=== PATIENT | female | born 1995 | race Hispanic/Latino ===

== ENCOUNTER 2025-06-01 18:43 | Emergency (ER) | payer OTHER ==
--- OUTSIDE RECORDS SUMMARY | 2025-06-01 18:48 | XMS REPORT | Continuity of Care Document ---
Author Name Unknown Address [address] [facility] [place] [address] [facility] Address [address] [facility] [place] [address] Care Team Providers Care Hide Spreader Name Role Phone Angelique Peres NP Primary Care Physician +- [phone] Debra Lyons PA-C Attending Clinician [phone] DEBRA LYONS Attending Clinician Unavailable Alexia Andrade Attending Clinician [phone] ALEXIA SUTHERLAND Attending Clinician Unavailable Unknown, Attending Attending Clinician Unavailab KAYLEE Pham Attending Clinician Unavailable Kaylee Carpenter Attending Clinician [phone] Unknown, Attending Attending Clinician UnavailJG Jay Attending Clinician Unavailable Jg Chaudhari MD Attending Clinician [phone] UNKNOWN, ATTENDING Attending Clinician Unavailab Jaquez Unassigned, [place] Attending Clinician U SUSANNE Carolina Attending Clinician UnavailSUSANNE Jordan Attending Clinician Unavaila BYRON Mata Attending Clinician Unavailable BYRON APONTE Attending Clinician Unavailable ZEKE BERG Attending Clinician Unavailable Faviola Garza Attending Clinician [phone] [facility] Attending Clinician Unav ailkarri Cade MD, Briana M Attending Clinician BRIANA MOHAMUD Attending Clinician BYRON Clifford Admitting Clinician Unavailable Payers Payer Name Policy Type Policy Number Effective Date Expirati on Date Source ALL SAVERADHA [id number] 2021 00:00:00 Problems Condition Name Condition Details Condition Category Status Onset Date Resolution Date Last Treatment Date Treating Clinician Comments Source Viral infection affecting in second trimester Viral infection affecting in second trimester Disease Active 03-18 00:00: 00 [facility] Nausea and vomiting Nausea and vomiting Disease Active 03-18 00:00: 00 [facility] Obesity (BMI 30-39.9) Obesity (BMI 30-39.9) Disease Active 03-18 00:00: 00 [facility] 23 weeks gestation of 23 weeks gestation of Disease Active 03-18 00:00: 00 [facility] Viral infection Viral infection Disease Active 03-18 00:00: 00 [facility] Surveillan ce of previously prescribed contracept kyra method Surveillan ce of previously prescribed contracept kyra method Disease Resolve d 11-08 00:00: 00 2019-03-18 00:00:00 2022-03-25 00:34:50 [facility] Immunizati ons up to date Immunizati ons up to date Disease Resolve d 11-08 00:00: 00 2019-03-18 00:00:00 2019-03-18 18:37:57 [facility] Allergies, Adverse Reactions, Alerts Allergy Name Allergy Type Status Severity Reaction(s) Onset Date Inactive Date Treating Clinician Comments Source No Known Allergie s DA Active U 2018-09 00:00: 00 [facility] No Known Allergie s DA Active U 12-17 00:00: 00 [facility] NO KNOWN ALLERGIE S Drug Class Active [facility] Social History Social Habit Start Date Stop Date Quantity Comments Source [facility] SDOH Alcohol Frequency [facility] History SDOH Alcohol Std Drinks [facility] History SDOH Alcohol Binge [facility] History of Social function 2024-11-08 00:00:00 2024-11-08 00:00:00 [facility] Alcoholic beverage intake 2024-11-08 00:00:00 2024-11-08 00:00:00 Ex-drinker (finding) [facility] Tobacco use and exposure 2024-11-08 00:00:00 2024-11-08 00:00:00 Smokeless tobacco non-user [facility] Alcohol intake 2023-09-15 00:00:00 2023-09-15 00:00:00 Ex-drinker (finding) [facility] Exposure to SARS-CoV-2 (event) 2022-05-10 00:00:00 2022-05-20 19:43:00 Not sure [facility] Alcohol Comment 2013-10-15 00:00:00 2013-10-15 00:00:00 on occasion [facility] Sex assigned at 1995 00:00:00 1995 00:00:00 [facility] Smoking Status Start Date Stop Date Source Never smoked tobacco [facility] Medications Ordered Medication Name Filled Medication Name Start Date Stop Date Current Medication? Ordering Clinician Indication Dosage Frequency Signature (SIG) Comments Components Source bromphenira mine-pseudo ephedrine-D M (BROMFED DM) 2-30-10 mg/5 mL syrup 11-17 00:00: 00 Yes [id number] 5mL Take 5 mL by mouth 3 (three) times daily as needed for Cold symptoms or Cough. [facility] albuterol 2.5 mg /3 mL (0.083 %) nebulizer solution 11-11 00:00: 00 Yes [id number] 2.5mg Inhale 3 mL every 4 (four) hours as needed for Chest tightness or Bronchospa sm. [facility] albuterol 90 mcg/actuati on inhaler 11-11 00:00: 00 Yes [id number] 2{puff} Inhale 2 Puffs every 6 (six) hours as needed for Shortness of Breath or Bronchospa sm. [facility] methylPREDN ISolone (MEDROL, ALEXIS,) 4 mg tablets 3- 00:00: 00 Yes [id number] Take by mouth SEE-INSTRU CTIONS. follow package directions [facility] amoxicillin -pot clavulanate 875-125 mg per tablet 3-02 00:00: 00 11-19 04:59 :00 No [id number] 1{tbl} Take 1 tablet by mouth in the morning and 1 tablet in the evening. Do all this for 10 days. [facility] amoxicillin 875 mg tablet 2-14 00:00: 00 11-03 05:59 :00 No [id number] 875mg Take 1 tablet by mouth in the morning and 1 tablet in the evening. Do all this for 10 days. [facility] benzonatate 100 mg capsule 1- 00:00: 00 Yes [id number] 200mg Take 2 capsules by mouth every 8 (eight) hours as needed for Cough. [facility] promethazin e-dextromet horphan 6.25-15 mg/5 mL syrup 1-07 00:00: 00 Yes [id number] 5mL Take 5 mL by mouth 4 (four) times daily as needed for Cough. [facility] NaCl 0.9% (NS) bolus infusion 1,000 mL 05-21 01:45: 00 05-21 03:28 :00 No 1000mL at 999 mL/hr, 1,000 mL, IV Infusion, ONCE, 1 dose, On 05/20/22 at 2045, STAT [facility] ketorolac tromethamin e (TORADOL) injection 15 mg 05-21 01:00: 00 05-21 01:00 :00 No 15mg 15 mg, Slow IV Push, ONCE, 1 dose, On 05/20/22 at 2000, JANET [facility] vit calc,iron,f olic ( VITAMIN ORAL) 5-15 15:07: 08 01-21 00:00 :00 No 1{tbl} Take 1 tablet by mouth. [facility] Levothyroxi ne 88 mcg capsule 03-19 00:08: 36 Yes 1{capsu le} Take 1 capsule by mouth daily. [facility] Levothyroxi ne 88 mcg capsule 03-18 19:08: 36 Yes 1{capsu le} Take 1 capsule by mouth daily. [facility] ondansetron (ZOFRAN ODT) 4 mg disintegrat ing tablet 03-18 00:00: 00 Yes [id number] 4mg Take 1 tablet by mouth every 6 (six) hours as needed for Nausea and Vomiting (N/V). [facility] Immunizations Ordered Immunization Name Filled Immunization Name Date Status Comments Source TD, NOS 2023-10-23 09:00:00 Completed [facility] TD, NOS 2023-09-15 10:00:00 Completed [facility] TD, NOS 2023-09-15 00:00:00 Completed [facility] Td 2010 00:00:00 Completed [facility] TD, NOS 2010 00:00:00 Completed [facility] Td 2010 00:00:00 Completed [facility] Td 2010 00:00:00 Completed [facility] Td 2010 00:00:00 Completed [facility] Vital Signs Vital Name Observation Time Observation Value Comments S ource Systolic blood pressure 2024-11-08 18:26:00 126 mm[Hg] [facility] Diastolic blood pressure 2024-11-08 18:26:00 91 mm[Hg] [facility] Heart rate 2024-11-08 18:25:00 118 /min [facility] Body temperature 2024-11-08 18:25:00 36.44 Brittani [facility] Respiratory rate 2024-11-08 18:25:00 16 /min [facility] Body height 2024-11-08 18:25:00 152.4 cm [facility] Body weight 2024-11-08 18:25:00 83.008 kg [facility] BMI 2024-11-08 18:25:00 35.74 kg/m2 [facility] Oxygen saturation in Arterial blood by Pulse oximetry 2024-11-08 18:25:00 97 /min [facility] Systolic blood pressure 2023-10-23 15:13:00 122 mm[Hg] [facility] Diastolic blood pressure 2023-10-23 15:13:00 82 mm[Hg] [facility] Heart rate 2023-10-23 15:13:00 117 /min [facility] Body temperature 2023-10-23 15:13:00 37.39 Brittani [facility] Respiratory rate 2023-10-23 15:13:00 17 /min [facility] Body weight 2023-10-23 15:13:00 79.788 kg [facility] BMI 2023-10-23 15:13:00 33.24 kg/m2 [facility] Oxygen saturation in Arterial blood by Pulse oximetry 2023-10-23 15:13:00 97 /min [facility] Systolic blood pressure 2023-09-15 16:12:00 112 mm[Hg] [facility] Diastolic blood pressure 2023-09-15 16:12:00 77 mm[Hg] [facility] Heart rate 2023-09-15 16:12:00 106 /min [facility] Body temperature 2023-09-15 16:12:00 36.83 Brittani [facility] Respiratory rate 2023-09-15 16:12:00 16 /min [facility] Body weight 2023-09-15 16:12:00 81.33 kg [facility] BMI 2023-09-15 16:12:00 33.88 kg/m2 [facility] Oxygen saturation in Arterial blood by Pulse oximetry 2023-09-15 16:12:00 99 /min [facility] Systolic blood pressure 2022-05-21 03:00:00 125 mm[Hg] [facility] Diastolic blood pressure 2022-05-21 03:00:00 79 mm[Hg] [facility] Heart rate 2022-05-21 03:00:00 87 /min [facility] Respiratory rate 2022-05-21 03:00:00 14 /min [facility] Oxygen saturation in Arterial blood by Pulse oximetry 2022-05-21 03:00:00 100 /min [facility] Body temperature 2022-05-21 00:46:00 37.06 Brittani [facility] Body height 2022-05-21 00:46:00 154.9 cm [facility] Body weight 2022-05-21 00:46:00 70.308 kg [facility] BMI 2022-05-21 00:46:00 29.29 kg/m2 [facility] Systolic blood pressure 2020-01-22 14:55:00 100 mm[Hg] [facility] Diastolic blood pressure 2020-01-22 14:55:00 56 mm[Hg] [facility] Heart rate 2020-01-22 14:55:00 70 /min [facility] Body temperature 2020-01-22 14:55:00 36.67 Brittani [facility] Respiratory rate 2020-01-22 14:55:00 14 /min [facility] Body height 2020-01-22 14:55:00 154.9 cm [facility] Body weight 2020-01-22 14:55:00 79.379 kg [facility] BMI 2020-01-22 14:55:00 33.07 kg/m2 [facility] Oxygen saturation in Arterial blood by Pulse oximetry 2020-01-22 14:55:00 98 /min [facility] Procedures Procedure Date / Time Performed Performing Clinician Source XR CHEST 2 VW 2024-11-08 18:56:43 Alexia Sutherland [facility] POCT MOLECULAR FLU 2024-11-08 18:33:00 Unknown, Attend [facility] POCT MOLECULAR STREP 2024-11-08 18:30:00 [facility] 2023-10-23 15:11:00 [facility] PO[facility] SARS-COV-2 ANTIGEN (BINAX NOW) 2023-09-15 16:19:00 Jg Chaudhari [facility] POCT MOLECULAR FLU 2023-09-15 16:12:00 Unknown, Attend ing [facility] POCT MOLECULAR STREP 2023-09-15 16:09:00 Unknown, Attmarcus velez [facility] ASSIGNMENT OF BENEFITS 2023-09-15 15:59:18 Docto r Unassigned, [place] [facility] SEDIMENTATION RATE 2022-05-21 01:39:00 Fay [facility] D-DIMER 2022-05-21 01:39:00 Fay Byron [facility] XR CHEST 1 VW 2022-05-21 01:16:22 Fay [facility] URINE DRUG (IMMUNOASSAY) - COMPREHENSIVE DRUG SCREEN W/O REFLEX 2022-05-21 01:03:00 Fay Byron [facility] COVID-19 (ID NOW RAPID TESTING) 2022-05-21 01:02:00 Fay Byron [facility] LIPASE 2022-05-21 01:02:00 Fay [facility] TROPONIN I 2022-05-21 01:02:00 Fay [facility] COMP. METABOLIC PANEL ([id number]) 2022-05-21 01:02:00 Fay [facility] CBC WITH DIFF 2022-05-21 01:02:00 Byron [facility] URINALYSIS 2022-05-21 01:02:00 Fay [facility] N-TERMINAL PRO-BNP 2022-05-21 01:02:00 Fay Byron [facility] POCT TEST 2022-05-21 00:50:00 Fay [facility] NOTICE OF PRIVACY PRACTICES 2022-05-21 00:31:53 Doctor Unassigned, [place] [facility] CONSENT/REFUSAL FOR DIAGNOSIS AND TREATMENT 2022-05-21 00:31:32 Doctor Unassigned, [place] [facility] POCT GRP A STREP (MOLECULAR) 2020-01-22 15:13:00 Christie Escalante [facility] Encounters Start Date/Time End Date/Time Encounter Type Admission Type Attending [facility] Care Facility Care Department Encounter ID Source 2024-12-03 00:00:00 2024-12-03 14:19:26 Refnikhil Lyons Debra [facility] JESS[facility] 1.2.840.114 350.1.13.10 4.2.7.2.686 [id number] [facility] 2024-11-17 18:40:00 2024-11-17 19:47:11 Outpatient R DEBRA LYONS [facility] [id number] [facility] 2024-11-10 00:00:00 2024-11-11 15:41:07 Telephone [place] Alexia [facility] JESS?[facility] [id number] 350.1.13.10 4.2.7.2.686 [id number] [facility] 2024-11-08 12:50:05 2024-11-08 23:59:00 Hospital Encounter Alexia Sutherland [facility] J[facility] [id number] 350.1.13.10 4.2.7.2.686 [id number] [facility] 2024-11-08 12:40:00 2024-11-08 13:06:24 Outpatient R ALEXIA SUTHERLAND [facility] [id number] [facility] 2024-11-08 12:40:00 2024-11-08 13:06:24 Urgent Care SutherlandAlexia Ernesto, Attending [facility] 1.2.840.114 350.1.13.10 4.2.7.2.686 [id number] [facility] 2023-10-23 09:00:00 2023-10-23 09:48:54 Outpatient R KAYLEE CHRISTINE [facility] [id number] [facility] 2023-10-23 09:00:00 2023-10-23 09:20:00 Urgent Care Kalyee Christine Unknown, Attending [facility] 1..840.114 350.1.13.10 4.2.7.2.686 [id number] [facility] 2023-09-15 10:00:00 2023-09-15 10:46:01 Outpatient R JG CHAUDHARI [facility] [id number] [facility] 2023-09-15 10:00:00 2023-09-15 10:46:01 Urgent Care Jg Chaudhari Unknown, Attending [facility] 1..840.114 350.1.13.10 4.2.7.2.686 [id number] [facility] 2023-09-15 00:00:00 2023-09-15 00:00:00 Orders Only Doctor Unassigned, [place] [facility] 1.840.114 350.1.13.10 4.2.7.2.686 [id number] [facility] 2022-07-09 11:30:00 2022-07-09 11:30:00 Outpatient R SUSANNE BALLARD CHERYAL [facility] [id number] [facility] 2022-05-20 19:52:00 2022-05-20 22:30:00 Emergency X BYRON APONTE [facility] ERT [id number] [facility] 2022-05-20 19:52:00 2022-05-20 22:30:00 Emergency Byron Aponte [facility] 1.840.114 350.1.13.10 4.2.7.2.686 [id number] [facility] 2022-05-20 00:00:2022-05-20 00:00:00 Orders Only Doctor Unassigned, [place] [facility] 1.2.840.114 350.1.13.10 4.2.7.2.686 [id number] [facility] 2020-10-07 08:40:00 2020-10-07 08:40:00 Outpatient R MORENA ZEKE [facility] [id number] [facility] 2020-01-24 00:00:00 2020-01-24 00:00:00 Telephone Faviola Garza [facility] 1.2.840.114 350.1.13.10 4.2.7.2.686 [id number] [facility] 2020-01-22 09:43:39 2020-01-22 10:13:30 Urgent Care Pob1, Acute Care Clinic Briana Mohamud [facility] 1.2.840.114 350.1.13.10 4.2.7.2.686 [id number] [facility] 2020-01-22 10:00:00 2020-01-22 10:00:00 Outpatient BRIANA KIMBALL [facility] [id number] [facility] Results Test Description Test Time Test Comments Results Resul t Comments Source XR Chest 2 vw 2 19:56:05 XR CHEST 2 11/08/2024 12:54 PM HISTORY: cough x 1 week, fever . COMPARISON: Chest radiograph dated 05/20/2022. FINDINGS: Cardiomediastinal silhouette is unremarkable. Right mid/lower lung zone hazy opacity, suspicious for infectious process.Follow up radiograph in 6-8 weeks is advised. No sizable pleural effusion or pneumothorax. No acute osseous abnormality. [facility] MOLECULAR [id number] 18:38:01* Test Item Value Reference Range Interpretation Comme nts POCT Molecular Strep (test c ode = 44363-3) Negative Negative Lab Interpretation (test cod e = 82977-3) Normal [facility] MOLECULAR [id number] 15:18:37* Test Item Value Reference Range Interpretation Comme nts POCT Molecular Strep (test c ode = 60382-4) Positive Negative A Lab Interpretation (test cod e = 27876-5) Abnormal [facility] SARS-COV-2 ANTIGEN (BINAX NOW)2023-09-15 16:19:00* Test Item Value Reference Range Interpretation Comme nts POCT SARS-COV-2 ANTIGEN (test code = 47755-7) Not Detected Not Detected On board controls acceptable with C Line (test code = 3574) Yes RAYMOND (test code = RAYMOND) accurate developme nt and interpretation of all internal controls Lab Interpretation (test code = 36560-5) Normal [facility] MOLECULAR [id number] 16:17:45* Test Item Value Reference Range Interpretation Comme nts POCT Molecular Strep (test c ode = 19765-5) Negative Negative Lab Interpretation (test cod e = 30007-9) Normal [facility] Molecular [id number] 16:15:59* Test Item Value Reference Range Interpretation Comme nts POCT Molecular FluB (test co de = 07433-0) Positive Negative A Lab Interpretation (test cod e = 35444-5) [id number] 01:37:26* Test Item Value Reference Range Interpretation Comments TROPONIN I (test code = 5566222369) 0.004 ng/mL See_Comment [Automated message] The system which generated this result transmitted reference range: <=0.034. The reference range was not used to interpret this result as normal/abnormal. RAYMOND (test code = RAYMOND) Reference (Normal) Range (defined by the 99th percentile reference limit): <= 0.034 ng/mL Note: Cardiac troponin begins to rise 3-4 hours after the onset of ischemia. Repeat in 4-6 hours if the sample was drawn within 3-4 hours of the onset of the symptom and found normal. Diagnosis of myocardial injury is made with acute changes in cTn concentrations with at least one serial sample above the 99th percentile upper reference limit (URL), taken together with the patient's clinical presentation. Biotin has been reported to cause a negative bias, interpret results relative to patient's use of biotin. Lab Interpretation (test code = 18514-6) Normal [facility] [id number] 01:34:24* Test Item Value Reference Range Interpretation Comme nts NT-proBNP (test code = 3921432844) 62 pg/mL See_Comment [Automated message] The system which generated this result transmitted reference range: <=125. The reference range was not used to interpret this result as normal/abnormal. RAYMOND (test code = RAYMOND) Biotin has been reported to cause a negative bias, interpret results relative to patient's use of biotin. Lab Interpretation (test code = 41039-5) [facility]OL[facility] PAN[facility] (72173)2022-05-21 01:26:06* Test Item Value Reference Range Interpretation Comme nts NA (test code = 3899760078) 138 mmol/L 135-145 K (test code = 6323910887) 3.9 mmol/L 3.5-5 CL (test code = 9683382133) 102 mmol/L 98-108 CO2 TOTAL (test code = 1657973321) 28 mmol/L 23-31 AGAP (test code = 2566137957) 2-16 BUN (test code = 7172548095) 14 mg/dL 7-23 GLUCOSE (test code = 2263690299) 83 mg/dL 70-110 CREATININE (test code = 7674846482) 0.80 mg/dL 0.5-1.04 TOTAL BILI (test code = 0660796113) 0.7 mg/dL 0.1-1.1 CALCIUM (test code = 8515562915) 9.2 mg/dL 8.6-10.6 T PROTEIN (test code = 1245681173) 7.3 g/dL 6.3-8.2 ALBUMIN (test code = 7980491484) 4.7 g/dL 3.5-5 ALK PHOS (test code = 9131212440) 112 U/L 34-122 ALTv (test code = 1742-6) 134 U/L 5-35 H AST(SGOT) (test code = 9502294555) 69 U/L 13-40 H eGFR (test code = 5802153214) mL/min/1.73m2 RAYMOND (test code = RAYMOND) Association of Glomerular Filtration Rate (GFR) and Staging of Kidney Disease* + --+ --+ ------+| GFR (mL/min/1.73 m2) ?| With Kidney Damage ?| ?Without Kidney Damage+ --------+ --------+ +| ?>90 ?| ?Stage one ?| ? Normal ?+ ---+ ---+ -------+| ?60-89 ?| ?Stage two ?| ? Decreased GFR ? + --+ --+ ------+| ?30-59 ?| ?Stage three ?| ? Stage three ? + --+ --+ ------+| ?15-29 ?| ?Stage four ? | ? Stage four ?+ ---+ ---+ -------+| ?<15 (or dialysis) ? ?| ?Stage five ? | ? Stage five ?+ ---+ ---+ -------+ *Each stage assumes the associated GFR level has been in effect for at least three months. ?Stages 1 to 5, with or without kidney disease, indicate chronic kidney disease. Notes: Determination of stages one and two (with eGFR >59mL/min/1.73 m2) requires estimation of kidney damage for at least three months as defined by structural or functional abnormalities of the kidney, manifested by either:Pathological abnormalities or Markers of kidney damage (including abnormalities in the composition of the blood or urine or abnormalities in imaging tests). Lab Interpretation (test code = 52493-8) [facility]25:20* Test Item Value Reference Range Interpretation Comme nts LIPASE (test code = 5156213463) 90 U/L 0-220 Lab Interpretation (test cod e = 31361-6) Normal [facility] WITH [id number] 01:17:03* Test Item Value Reference Range Interpretation Comme nts WBC (test code = 6690-2) See_Comment [Automated [employer]] The system which generated this result transmitted reference range: 4.30 - 11.10 10*3/?L. The reference range was not used to interpret this result as normal/abnormal. RBC (test code = 789-8) See_Comment [Automated [employer]] The system which generated this result transmitted reference range: 3.93 - 5.25 10*6/?L. The reference range was not used to interpret this result as normal/abnormal. HGB (test code = 718-7) 14.6 g/dL 11.6-15 HCT (test code = 4544-3) 42.0 % 35.7-45.2 MCV (test code = 787-2) 86.4 fL 80.6-95.5 MCH (test code = 785-6) 30.0 pg 25.9-32.8 MCHC (test code = 786-4) 34.8 g/dL 31.6-35.1 RDW-SD (test code = 40043-5) 41.2 fL 39-49.9 RDW-CV (test code = 788-0) 13.2 % 12-15.5 PLT (test code = 777-3) See_Comment [Automated messa ge] The system which generated this result transmitted reference range: 166 - 358 10*3/?L. The reference range was not used to interpret this result as normal/abnormal. MPV (test code = 39655-4) 10.3 fL 9.5-12.9 NRBC/100 WBC (test code = 7006905872) See_Comment [Automated [employer] ssage] The system which generated this result transmitted reference range: 0.0 - 10.0 /100 WBCs. The reference range was not used to interpret this result as normal/abnormal. NRBC x10^3 (test code = 7888514733) See_Comment [Automated messa ge] The system which generated this result transmitted reference range: 10*3/?L. The reference range was not used to interpret this result as normal/abnormal. GRAN MAT (NEUT) % (test code = 770-8) 63.1 % IMM GRAN % (test code = 2638968112) 0.40 % LYMPH % (test code = 736-9) 24.4 % MONO % (test code = 5905-5) 9.4 % EOS % (test code = 713-8) 2.0 % BASO % (test code = 706-2) 0.7 % GRAN MAT x10^3(ANC) (test code = 6826335213) 6.78 10*3/uL 1.88-7.09 IMM GRAN x10^3 (test code = 6490885413) 0.04 10*3/uL 0-0.06 LYMPH x10^3 (test code = 731-0) 2.63 10*3/uL 1.32-3.29 MONO x10^3 (test code = 742-7) 1.01 10*3/uL 0.33-0.92 H EOS x10^3 (test code = 711-2) 0.22 10*3/uL 0.03-0.39 BASO x10^3 (test code = 704-7) 0.08 10*3/uL 0.01-0.07 H Lab Interpretation (test code = 34648-2) Abnormal [facility] [id number] 00:50:00* Test Item Value Reference Range Interpretation Comme nts POCT PREG (test code = 1605) Negative On board controls acceptable with C Line (test code = 3574) Present POCT PREG LOT # (test code = 3575) HCG [id number] POCT PREG TEST DATE ( test code = 3576) 08/08/2023 Lab Interpretation (test cod e = 87197-2) Normal [facility] GRP A STREP (MOLECULAR)2020-01-22 15:13:00* Test Item Value Reference Range Interpretation Comme nts POCT GP A STREP (test code = 88807-9) neg Negative - Negative RAYMOND (test code = RAYMOND) accurate developme nt and interpretation of all internal controls Lab Interpretation (test code = 84064-2) [facility] [id number] 11:43:00* Test Item Value Reference Range Interpretation Comme nts AG HEPATITIS B SURFACE (test code = HBSAG) NONREACTIVE NONREACTIVE IS CONSENT FORM SIGNED FOR HIV TESTING? YAB HEPATITIS C [id number] 11:43:00* Test Item Value Reference Range Interpretation Comme nts AB HEPATITIS C (test code = HCVAB) NONREACTIVE NONREACTIVE SIGNAL TO CUTOFF (test code = CUTOFF) 0.11 <0.80 N IS CONSENT FORM SIGNED FOR HIV TESTING? YAB [id number] 11:43:00* Test Item Value Reference Range Interpretation Comme nts AB TREPONEMA (test code = TREPAB) NONREACTIVE NONREACTIVE IS CONSENT FORM SIGNED FOR HIV TESTING? YAB HIV 1 [id number] 11:43:00* Test Item Value Reference Range Interpretation Comme nts AB HIV 1 2 (test code = KOX95ZZ) NONREACTIVE NONREACTIVE Done by [employer] HIV Ag/Ab Combo Screen IS CONSENT FORM SIGNED FOR HIV TESTING? YAG HEPATITIS B [id number] 11:17:00* Test Item Value Reference Range Interpretation Comme nts AG HEPATITIS B SURFACE (test code = HBSAG) NONREACTIVE NONREACTIVE IS CONSENT FORM SIGNED FOR HIV TESTING? YAB HEPATITIS C [id number] 11:17:00* Test Item Value Reference Range Interpretation Comme nts AB HEPATITIS C (test code = HCVAB) NONREACTIVE SIGNAL TO CUTOFF (test code = CUTOFF) <0.80 IS CONSENT FORM SIGNED FOR HIV TESTING? FABIANB [id number] 11:17:00* Test Item Value Reference Range Interpretation Comme nts AB TREPONEMA (test code = TREPAB) NONREACTIVE NONREACTIVE IS CONSENT FORM SIGNED FOR HIV TESTING? FABIANB HIV 1 11:17:00* Test Item Value Reference Range Interpretation Comme nts AB HIV 1 2 (test code = NWX90EX) NONREACTIVE IS CONSENT FORM SIGNED FOR HIV TESTING? YCBC W/AUTO [id number] 10:24:00* Test Item Value Reference Range Interpretation Comme nts WHITE BLOOD CELL (test code = WBC) 10.6 K/mm3 6.6-12.1 N RED BLOOD CELL (test code = RBC) 4.00 M/mm3 3.45-5.01 N HEMOGLOBIN (test code = HGB) 10.8 g/dL 10.7-13.9 N HEMATOCRIT (test code = HCT) 33.6 % 32.1-42.1 N MEAN CELL VOLUME (test code = MCV) 84 fL 84.1-94.8 L MEAN CELL HGB (test code = MCH) 27.0 pg 27-35 N MEAN CELL HGB CONCETRATION ( test code = MCHC) 32.1 gm/dL 32.2-34.1 L RED CELL DISTRIBUTION WIDTH (test code = RDW) 16.0 % 12.4-16.5 N PLATELET COUNT (test code = PLT) 273 K/mm3 133-385 N IMMATURE PLATELET FRACTION ( test code = IPF) 0.0 % 0.0-10.8 N MEAN PLATELET VOLUME (test c ode = MPV) 11.5 fl 9.1-12.7 N NEUTROPHIL % (test code = NT%) 78.4 % 56.5-79.4 N LYMPHOCYTE % (test code = LY%) 14.2 % 14.3-34.3 L MONOCYTE % (test code = MO%) 6.2 % 5.1-10.4 N EOSINOPHIL % (test code = EO%) 0.4 % 0.1-3.0 N BASOPHIL % (test code = BA%) 0.4 % 0.1-1.0 N NEUTROPHIL # (test code = NT#) 8.3 K/mm3 LYMPHOCYTE # (test code = LY#) 1.5 K/mm3 MONOCYTE # (test code = MO#) 0.7 K/mm3 EOSINOPHIL # (test code = EO#) 0.04 K/mm3 BASOPHIL # (test code = BA#) 0.0 K/mm3 RBC MORPHOLOGY REQUIRED (janice t code = RBCM) NORMAL NORMAL PLATELET MORPHOLOGY REQUIRED (test code = PLTMR) NORMAL NORMAL PIH [id number] 13:26:00* Test Item Value Reference Range Interpretation Comme nts CREATININE (test code = CREAT) 0.5 mg/dL 0.5-1.0 N SGOT/AST (test code = AST) 32 units/L 15-37 N SGPT/ALT (test code = ALT) 16 units/L 12-78 N LACTIC DEHYDROGENASE(LDH) (t est code = LDH) 314 units/L 81-234 H : *URINALYSIS [id number] 13:19:00* Test Item Value Reference Range Interpretation Comme nts UA COLOR (test code = COLU) YELLOW YELLOW UA APPEARANCE (test code = APPU) CLEAR CLEAR UA GLUCOSE DIPSTICK (test co de = DGLUU) NEGATIVE NEG UA BILIRUBIN DIPSTICK (test code = BILU) NEGATIVE NEG UA KETONE DIPSTICK (test cod e = KETU) TRACE NEG A UA SPECIFIC GRAVITY (test co de = SGU) 1.013 1.001-1.035 N UA BLOOD DIPSTICK (test code = KEN) NEG NEG UA PH DIPSTICK (test code = SAMANTHA) 6.0 5-9 UA PROTEIN DIPSTICK (test co de = PROU) NEGATIVE NEG UA UROBILINIOGEN DIPSTICK (test code = URO) NEGATIVE mg/dL NEG UA NITRITE DIPSTICK (test co de = LUCIA) NEG NEG UA LEUKOCYTE ESTERASE DIPSTI CK (test code = LEUU) NEG NEG UA WBC (test code = WBCU) 0-2 #/hpf NONE SEEN UA RBC (test code = RBCU) 0-2 #/hpf NONE SEEN UA EPITHELIAL CELLS (test co de = EPIU) RARE #/HPF RARE-FEW UA MUCUS (test code = MUCU) RARE NONE SEEN URINE SAMPLE: CLEAN CATCHComment SAMPLE IS IN LABCBC W/AUTO [id number] 13:18:00* Test Item Value Reference Range Interpretation Comme nts WHITE BLOOD CELL (test code = WBC) 8.7 K/mm3 6.6-12.1 N RED BLOOD CELL (test code = RBC) 3.72 M/mm3 3.45-5.01 N HEMOGLOBIN (test code = HGB) 10.1 g/dL 10.7-13.9 L HEMATOCRIT (test code = HCT) 31.7 % 32.1-42.1 L MEAN CELL VOLUME (test code = MCV) 85 fL 84.1-94.8 N MEAN CELL HGB (test code = MCH) 27.2 pg 27-35 N MEAN CELL HGB CONCETRATION ( test code = MCHC) 31.9 gm/dL 32.2-34.1 L RED CELL DISTRIBUTION WIDTH (test code = RDW) 15.6 % 12.4-16.5 N PLATELET COUNT (test code = PLT) 246 K/mm3 133-385 N IMMATURE PLATELET FRACTION ( test code = IPF) 0.0 % 0.0-10.8 N MEAN PLATELET VOLUME (test c ode = MPV) 12.0 fl 9.1-12.7 N NEUTROPHIL % (test code = NT%) 74.1 % 56.5-79.4 N LYMPHOCYTE % (test code = LY%) 16.9 % 14.3-34.3 N MONOCYTE % (test code = MO%) 6.9 % 5.1-10.4 N EOSINOPHIL % (test code = EO%) 1.1 % 0.1-3.0 N BASOPHIL % (test code = BA%) 0.5 % 0.1-1.0 N NEUTROPHIL # (test code = NT#) 6.5 K/mm3 LYMPHOCYTE # (test code = LY#) 1.5 K/mm3 MONOCYTE # (test code = MO#) 0.6 K/mm3 EOSINOPHIL # (test code = EO#) 0.10 K/mm3 BASOPHIL # (test code = BA#) 0.0 K/mm3 RBC MORPHOLOGY REQUIRED (janice t code = RBCM) NORMAL NORMAL PLATELET MORPHOLOGY REQUIRED (test code = PLTMR) NORMAL NORMAL UR PROTEIN/CREATININE [id number] 12:47:00* Test Item Value Reference Range Interpretation Comme nts UR PROTEIN RANDOM (test code = PROTU) 27.3 mg/dL UR CREATININE RANDOM (test code = CREATU) 74.7 mg/dL PROTEIN/CREATININE RATIO (te st code = P/CRATIO) 360.0 mg/gcrea <200 H PLACENTA THIRD [id number] 12:51:00 RUN DATE: 04/15/18 [facility] PAGE 1 RUN TIME: 1334 Specimen Inquiry RUN USER: INTERFACE ------- -----PATIENT: KIRK FALLON LOC: SbVANDANA U #: [id number] AGE/SX: 22/F ROOM: 2045 RE04/11/18REG DR: Alexia Randall : 94 BED: A DIS: STATUS: ADM IN TLOC: SPEC #: [id number] RECD: 04/13/18 STATUS: OSIRIS DOMINGO #: [id number] CAMI: 04/13/18- SUBM DR: Alexia Randall MD ENTERED: 04/14/18 SP TYPE: PLACIII OTHR DR: Madhavi Winkler MD ORDERED: LEVEL V SURGICA CODES: [id number] - PLACENTA, NOS COPIES TO: Alexia Randall MD [address] [facility] [place] [address] [place] [id number] [email or web address] Madhavi Winkler MD [address] [facility] [address] [place] [address] [email or web address] PROCEDURES: LEVEL V SURGICA (Incomplete) TISSUES: PLACENTA, NOS- PLACENTA CLINICAL HISTORY 22 year old, 38.2 weeks, [id number], vaginal delivery, gestational hypertension, chorioamnionitis (pola) FINAL DIAGNOSIS Placenta, delivery - large placenta for stated gestational age - villous immaturity, mild Tissue code 1 CPT code(s): 96244 bgw/kr 04/15/18 @ 1244 GROSS DESCRIPTION The specimen was received in a container, labeled with the patient's name, unit number and designated "placenta". The following attributes are observed: Cord insertion: 8 cm from margin CONTINUED ON NEXT PAGE RUN DATE: 04/15/18 [facility] PAGE 2 RUN TIME: 1334 Specimen Inquiry RUN USER: INTERFACE SPEC #: [id number] PATIENT: KIRK FALLON #[id number] (Continued) GROSS DESCRIPTION (Continued) Cord length: 54 cm Number of vessels: 3 Cord color: Blue-bobby Other cord findings: None Fetalsurface findings: Steel blue, wrinkled, glistening Vasculature: Displays unremarkable blood vasculature Membranes rupture site: 6 cm to margin Membrane color: Bobby Other membrane findings: Thickened and opaque The trimmed placental weight: 694 gm Disk measurement: 23 x 19 x 5.0 cm in greatest dimension Accessory lobes: None Maternal surface: Lobulated and intact Parenchyma: Red, beefy, and spongy Parenchyma lesions: None Cassettes: A through D hz/wpd 04/14/18 @ 6998 MICROSCOPIC DESCRIPTION Theplacenta is large for stated gestational age at 694 gm, which exceeds the 90th percentile expected weight of 589 gm. Villous development is mildly immature for stated gestational age. davy/pola 04/15/18 @ 1245 Signed Tirso BatesLydia 04/15/18 1251 END OF REPORT Notes Date/Time Note Provider Source 2024-11-11 15:41:23 Albuterol sent to pharmacy. Pt informed. [facility] 2024-11-10 14:47:30 Routing to Provider., please advise AR Harris MA [facility] 2024-11-10 10:16:30 Pt said was seen at the urgent care for pneumonia and requesting albuterol inhaler and albuterol solution that goes in the nebulizer. 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 Myranda Mandujano [facility] 2019-07-04 10:21:00 [facility]) OB Disch REPORT#:[id number] REPORT STATUS: Signed DATE:07/04/19 TIME: 1021 PATIENT: KIRK FALLON UNIT #: [id number] ROOM/BED: 4624-A : 94 AGE: 23 SEX: F ATTEND: Alexia Randall MD ADM AUTHOR: Lilia Freedman * ALL edits or amendments must be made on the electronic/computer document * Subjective Subjective Admission EGA (wks/days): 39 weeks EGA at delivery (wks/days): 39 weeks Status/day: post (PPD #1) Patient reports: Patient reports: Yes: normal lochia, pain management effective, tolerating po well, voiding well, voiding without pain, tolerating ambulation, flatus. No: complaints, excessive bleeding, abdominal pain. Objective General VS: Vital Signs Date Temp Pulse Resp B/P B/P Mean Pulse Ox FiO2 07/03 36.1-36.9 66-106 18 124-154/69-96 94.0-113.0 Last Documented: Result Date Time B/P 131/76 07/03 1945 Temp 36.1 07/03 1945 Pulse 91 07/03 1945 Resp 18 07/03 1945 B/P Mean 97.0 07/03 191 Patient Weight Weight (lb): Weight (oz): Weight (kg): Physical Exam Abdomen: no abnormal tenderness, no guarding, no rebound tenderness Uterus: involution appropriate, non-tender Fundus: below the umbilicus, non-tender Lochia: normal Results Findings/Data: Laboratory Tests: 07/03 1009 Hematology WBC (6.6 - 12.1 K/mm3) 10.6 RBC (3.45 - 5.01 M/mm3) 4.00 Hgb (10.7 - 13.9 g/dL) 10.8 Hct (32.1 - 42.1 %) 33.6 MCV (84.1 - 94.8 fL) 84 L MCH (27 - 35 pg) 27.0 MCHC (32.2 - 34.1 gm/dL) 32.1 L RDW (12.4 - 16.5 %) 16.0 Plt Count (133 - 385 K/mm3) 273 MPV (9.1 - 12.7 fl) 11.5 Neut % (Auto) (56.5 - 79.4 %) 78.4 Lymph % (Auto) (14.3 - 34.3 %) 14.2 L [place] % (Auto) (5.1 - 10.4 %) 6.2 Eos % (Auto) (0.1 - 3.0 %) 0.4 Baso % (Auto) (0.1 - 1.0 %) 0.4 Neut # (Auto) (K/mm3) 8.3 Lymph # (Auto) (K/mm3) 1.5 [place] # (Auto) (K/mm3) 0.7 Eos # (Auto) (K/mm3) 0.04 Baso # (Auto) (K/mm3) 0.0 Immature Plt Fraction (0.0 - 10.8 %) 0.0 Serology Treponema pallidum Ab (NONREACTIVE) NONREACTIVE Hep Bs Antigen (NONREACTIVE) NONREACTIVE Hepatitis C Antibody (NONREACTIVE) NONREACTIVE Hep C Ab Signal/Cutoff (<0.80) 0.11 HIV 1 2 Antibody (NONREACTIVE) NONREACTIVE Discharge Summary Discharge Summary Free Text A P: 23 y/o at 39w0d s/p TSVD Assessment: PPD # 1, VSS -ID: Afebrile. No signs or symptoms of infection -Lab: Hgb 10.8, serology neg x 3 -CV/Pulm: hemodynamically stable -GI/: tolerating regular diet, voiding spontaneously -Mother/Baby: patient is breast feeding her -Pain control: well controlled with PO pain medications -Rubella immune /Rh + -PMH: hypothyroid on Synthroid 88 mcg, managed by endo -PSH: none -Dispo: Cont routine PP care, anticipate discharge home on POD #1. Discharge orders given, restrictions reviewed. Date of admission: Date of admission: 07/03/19 Admission diagnosis: labor-spontaneous Hospital course: spontaneous labor Baby A: Vaginal delivery: spontaneous status: live born Gender: male 1 minute: 8 5 minutes: 9 Plan: routine care, discharge today Instructions: routine instr sheet given, instr and warnings rev'd, specific instr as noted Diet: regular Activity and restrictions: up ad mary ann, may shower, pelvic rest, no intercourse for 6 wks Contraception discussed: will discuss at PP visit Discharge meds: Continue taking these medications: FERROUS SULFATE (FEOSOL) 325 MG TAB 325 MILLIGRAM ORAL DAILY. Qty = 30 LEVOTHYROXINE (LEVOTHROID) 88 MCG TAB 88 MICROGRAM ORAL DAILY. ESOMEPRAZOLE MAG DR (NexIUM) 20 MG CAP.DR 20 MILLIGRAM ORAL DAILY AT 0600. as needed for HEARTBURN PNV/FE FUM/FA ( MULTIVITAMIN) 1 TAB TAB 1 TABLET ORAL DAILY. Discharge condition: stable Discharge to: home Follow up in: 6 weeks Discharge diagnosis: full-term uncomp delivery at 1025 RPT #:[id number] END OF REPORT [facility] 2019-07-04 10:21:00 [facility] ([facility]) OB Disch REPORT#:[id number] REPORT STATUS: Signed DATE:07/04/19 TIME: 1021 PATIENT: KIRK FALLON UNIT #: [id number] ROOM/BED: [address] : 94 AGE: 23 SEX: F ATTEND: Alexia Randall MD ADM AUTHOR: Lilia Freedman * ALL edits or amendments must be made on the electronic/computer document * Lilia Freedman 07/04/19 1021: Subjective Subjective Admission EGA (wks/days): 39 weeks EGA at delivery (wks/days): 39 weeks Status/day: post (PPD #1) Patient reports: Patient reports: Yes: normal lochia, pain management effective, tolerating po well, voiding well, voiding without pain, tolerating ambulation, flatus. No: complaints, excessive bleeding, abdominal pain. Objective General VS: Vital Signs Date Temp Pulse Resp B/P B/P Mean Pulse Ox FiO2 07/03 36.1-36.9 66-106 18 124-154/69-96 94.0-113.0 Last Documented: Result Date Time B/P 131/76 07/03 1945 Temp 36.1 07/03 1945 Pulse 91 07/03 1945 Resp 18 07/03 1945 B/P Mean 97.0 07/03 1913 Patient Weight Weight (lb): Weight (oz): Weight (kg): Physical Exam Abdomen: no abnormal tenderness, no guarding, no rebound tenderness Uterus: involution appropriate, non-tender Fundus: below the umbilicus, non-tender Lochia: normal Results Findings/Data: Laboratory Tests: 07/03 1009 Hematology WBC (6.6 - 12.1 K/mm3) 10.6 RBC (3.45 - 5.01 M/mm3) 4.00 Hgb (10.7 - 13.9 g/dL) 10.8 Hct (32.1 - 42.1 %) 33.6 MCV (84.1 - 94.8 fL) 84 L MCH (27 - 35 pg) 27.0 MCHC (32.2 - 34.1 gm/dL) 32.1 L RDW (12.4 - 16.5 %) 16.0 Plt Count (133 - 385 K/mm3) 273 MPV (9.1 - 12.7 fl) 11.5 Neut % (Auto) (56.5 - 79.4 %) 78.4 Lymph % (Auto) (14.3 - 34.3 %) 14.2 L [place] % (Auto) (5.1 - 10.4 %) 6.2 Eos % (Auto) (0.1 - 3.0 %) 0.4 Baso % (Auto) (0.1 - 1.0 %) 0.4 Neut # (Auto) (K/mm3) 8.3 Lymph # (Auto) (K/mm3) 1.5 [place] # (Auto) (K/mm3) 0.7 Eos # (Auto) (K/mm3) 0.04 Baso # (Auto) (K/mm3) 0.0 Immature Plt Fraction (0.0 - 10.8 %) 0.0 Serology Treponema pallidum Ab (NONREACTIVE) NONREACTIVE Hep Bs Antigen (NONREACTIVE) NONREACTIVE Hepatitis C Antibody (NONREACTIVE) NONREACTIVE Hep C Ab Signal/Cutoff (<0.80) 0.11 HIV 1 2 Antibody (NONREACTIVE) NONREACTIVE Discharge Summary Discharge Summary Free Text A P: 23 y/o at 39w0d s/p TSVD Assessment: PPD # 1, VSS -ID: Afebrile. No signs or symptoms of infection -Lab: Hgb 10.8, serology neg x 3 -CV/Pulm: hemodynamically stable -GI/: tolerating regular diet, voiding spontaneously -Mother/Baby: patient is breast feeding her infant -Pain control: well controlled with PO pain medications -Rubella immune /Rh + -PMH: hypothyroid on Synthroid 88 mcg, managed by endo -PSH: none -Dispo: Cont routine PP care, anticipate discharge home on POD #1. Discharge orders given, restrictions reviewed. Date of admission: Date of admission: 07/03/19 Admission diagnosis: labor-spontaneous Hospital course: spontaneous labor Baby A: Vaginal delivery: spontaneous status: live born Gender: male 1 minute: 8 5 minutes: 9 Plan: routine care, discharge today Instructions: routine instr sheet given, instr and warnings rev'd, specific instr as noted Diet: regular Activity and restrictions: up ad mary ann, may shower, pelvic rest, no intercourse for 6 wks Contraception discussed: will discuss at PP visit Discharge meds: Continue taking these medications: FERROUS SULFATE (FEOSOL) 325 MG TAB 325 MILLIGRAM ORAL DAILY. Qty = 30 LEVOTHYROXINE (LEVOTHROID) 88 MCG TAB 88 MICROGRAM ORAL DAILY. ESOMEPRAZOLE MAG DR (NexIUM) 20 MG CAP.DR 20 MILLIGRAM ORAL DAILY AT 0600. as needed for HEARTBURN PNV/FE FUM/FA ( MULTIVITAMIN) 1 TAB TAB 1 TABLET ORAL DAILY. Discharge condition: stable Discharge to: home Follow up in: 6 weeks Discharge diagnosis: full-term uncomp delivery Morena Greenwood 07/04/19 1044: Discharge Summary Discharge Summary Date of admission: Date of admission: 07/03/19 Attestations Attestation needed: supervising physician Physician Attestation Agree w/findings plan: Agree with the findings and plan as documented by Lilia Freedman Pt is PPD#1, dc home Reviewed findings plan: Reviewed the findings and plan as documented by Lilia Freedman at 1025 RPT #:[id number] END OF REPORT [facility] 2019-07-04 10:21:00 [facility] OB Disch REPORT#:[id number] REPORT STATUS: Signed DATE:07/04/19 TIME: 1021 PATIENT: KIRK FALLON UNIT #: [id number] ROOM/BED: 4624-A : 94 AGE: 23 SEX: F ATTEND: Alexia Randall MD ADM AUTHOR: Lilia Freedman * ALL edits or amendments must be made on the electronic/computer document * Lilia Freedman 07/04/19 1021: Subjective Subjective Admission EGA (wks/days): 39 weeks EGA at delivery (wks/days): 39 weeks Status/day: post (PPD #1) Patient reports: Patient reports: Yes: normal lochia, pain management effective, tolerating po well, voiding well, voiding without pain, tolerating ambulation, flatus. No: complaints, excessive bleeding, abdominal pain. Objective General VS: Vital Signs Date Temp Pulse Resp B/P B/P Mean Pulse Ox FiO2 07/03 36.1-36.9 66-106 18 124-154/69-96 94.0-113.0 Last Documented: Result Date Time B/P 131/76 07/03 1945 Temp 36.1 07/03 1945 Pulse 91 07/03 1945 Resp 18 07/03 1945 B/P Mean 97.0 07/03 191 Patient Weight Weight (lb): Weight (oz): Weight (kg): Physical Exam Abdomen: no abnormal tenderness, no guarding, no rebound tenderness Uterus: involution appropriate, non-tender Fundus: below the umbilicus, non-tender Lochia: normal Results Findings/Data: Laboratory Tests: 07/03 1009 Hematology WBC (6.6 - 12.1 K/mm3) 10.6 RBC (3.45 - 5.01 M/mm3) 4.00 Hgb (10.7 - 13.9 g/dL) 10.8 Hct (32.1 - 42.1 %) 33.6 MCV (84.1 - 94.8 fL) 84 L MCH (27 - 35 pg) 27.0 MCHC (32.2 - 34.1 gm/dL) 32.1 L RDW (12.4 - 16.5 %) 16.0 Plt Count (133 - 385 K/mm3) 273 MPV (9.1 - 12.7 fl) 11.5 Neut % (Auto) (56.5 - 79.4 %) 78.4 Lymph % (Auto) (14.3 - 34.3 %) 14.2 L [place] % (Auto) (5.1 - 10.4 %) 6.2 Eos % (Auto) (0.1 - 3.0 %) 0.4 Baso % (Auto) (0.1 - 1.0 %) 0.4 Neut # (Auto) (K/mm3) 8.3 Lymph # (Auto) (K/mm3) 1.5 [place] # (Auto) (K/mm3) 0.7 Eos # (Auto) (K/mm3) 0.04 Baso # (Auto) (K/mm3) 0.0 Immature Plt Fraction (0.0 - 10.8 %) 0.0 Serology Treponema pallidum Ab (NONREACTIVE) NONREACTIVE Hep Bs Antigen (NONREACTIVE) NONREACTIVE Hepatitis C Antibody (NONREACTIVE) NONREACTIVE Hep C Ab Signal/Cutoff (<0.80) 0.11 HIV 1 2 Antibody (NONREACTIVE) NONREACTIVE Discharge Summary Discharge Summary Free Text A P: 23 y/o at 39w0d s/p TSVD Assessment: PPD # 1, VSS -ID: Afebrile. No signs or symptoms of infection -Lab: Hgb 10.8, serology neg x 3 -CV/Pulm: hemodynamically stable -GI/: tolerating regular diet, voiding spontaneously -Mother/Baby: patient is breast feeding her -Pain control: well controlled with PO pain medications -Rubella immune /Rh + -PMH: hypothyroid on Synthroid 88 mcg, managed by endo -PSH: none -Dispo: Cont routine PP care, anticipate discharge home on POD #1. Discharge orders given, restrictions reviewed. Date of admission: Date of admission: 07/03/19 Admission diagnosis: labor-spontaneous Hospital course: spontaneous labor Baby A: Vaginal delivery: spontaneous status: live born Gender: male 1 minute: 8 5 minutes: 9 Plan: routine care, discharge today Instructions: routine instr sheet given, instr and warnings rev'd, specific instr as noted Diet: regular Activity and restrictions: up ad mary ann, may shower, pelvic rest, no intercourse for 6 wks Contraception discussed: will discuss at PP visit Discharge meds: Continue taking these medications: FERROUS SULFATE (FEOSOL) 325 MG TAB 325 MILLIGRAM ORAL DAILY. Qty = 30 LEVOTHYROXINE (LEVOTHROID) 88 MCG TAB 88 MICROGRAM ORAL DAILY. ESOMEPRAZOLE MAG DR (NexIUM) 20 MG CAP.DR 20 MILLIGRAM ORAL DAILY AT 0600. as needed for HEARTBURN PNV/FE FUM/FA ( MULTIVITAMIN) 1 TAB TAB 1 TABLET ORAL DAILY. Discharge condition: stable Discharge to: home Follow up in: 6 weeks Discharge diagnosis: full-term uncomp delivery Morena Greenwood 07/04/19 1044: Discharge Summary Discharge Summary Date of admission: Date of admission: 07/03/19 Attestations Attestation needed: supervising physician Physician Attestation Agree w/findings plan: Agree with the findings and plan as documented by Lilia Freedman Pt is PPD#1, dc home Reviewed findings plan: Reviewed the findings and plan as documented by Lilia Freemdan at 1025 at 1045 RPT #:[id number] END OF REPORT [facility] 2019-07-04 10:21:00 [facility] OB Disch REPORT#:[id number] REPORT STATUS: Signed DATE:07/04/19 TIME: 1021 PATIENT: KIRK FALLON UNIT #: [id number] ROOM/BED: [address] : 94 AGE: 23 SEX: F ATTEND: Alexia Randall MD ADM AUTHOR: Lilia Freedman * ALL edits or amendments must be made on the electronic/computer document * Lilia Freedman 07/04/19 1021: Subjective Subjective Admission EGA (wks/days): 39 weeks EGA at delivery (wks/days): 39 weeks Status/day: post (PPD #1) Patient reports: Patient reports: Yes: normal lochia, pain management effective, tolerating po well, voiding well, voiding without pain, tolerating ambulation, flatus. No: complaints, excessive bleeding, abdominal pain. Objective General VS: Vital Signs Date Temp Pulse Resp B/P B/P Mean Pulse Ox FiO2 07/03 36.1-36.9 66-106 18 124-154/69-96 94.0-113.0 Last Documented: Result Date Time B/P 131/76 07/03 1945 Temp 36.1 07/03 1945 Pulse 91 07/03 1945 Resp 18 07/03 1945 B/P Mean 97.0 07/03 1913 Patient Weight Weight (lb): Weight (oz): Weight (kg): Physical Exam Abdomen: no abnormal tenderness, no guarding, no rebound tenderness Uterus: involution appropriate, non-tender Fundus: below the umbilicus, non-tender Lochia: normal Results Findings/Data: Laboratory Tests: 07/03 1009 Hematology WBC (6.6 - 12.1 K/mm3) 10.6 RBC (3.45 - 5.01 M/mm3) 4.00 Hgb (10.7 - 13.9 g/dL) 10.8 Hct (32.1 - 42.1 %) 33.6 MCV (84.1 - 94.8 fL) 84 L MCH (27 - 35 pg) 27.0 MCHC (32.2 - 34.1 gm/dL) 32.1 L RDW (12.4 - 16.5 %) 16.0 Plt Count (133 - 385 K/mm3) 273 MPV (9.1 - 12.7 fl) 11.5 Neut % (Auto) (56.5 - 79.4 %) 78.4 Lymph % (Auto) (14.3 - 34.3 %) 14.2 L [place] % (Auto) (5.1 - 10.4 %) 6.2 Eos % (Auto) (0.1 - 3.0 %) 0.4 Baso % (Auto) (0.1 - 1.0 %) 0.4 Neut # (Auto) (K/mm3) 8.3 Lymph # (Auto) (K/mm3) 1.5 [place] # (Auto) (K/mm3) 0.7 Eos # (Auto) (K/mm3) 0.04 Baso # (Auto) (K/mm3) 0.0 Immature Plt Fraction (0.0 - 10.8 %) 0.0 Serology Treponema pallidum Ab (NONREACTIVE) NONREACTIVE Hep Bs Antigen (NONREACTIVE) NONREACTIVE Hepatitis C Antibody (NONREACTIVE) NONREACTIVE Hep C Ab Signal/Cutoff (<0.80) 0.11 HIV 1 2 Antibody (NONREACTIVE) NONREACTIVE Discharge Summary Discharge Summary Free Text A P: 23 y/o at 39w0d s/p TSVD Assessment: PPD # 1, VSS -ID: Afebrile. No signs or symptoms of infection -Lab: Hgb 10.8, serology neg x 3 -CV/Pulm: hemodynamically stable -GI/: tolerating regular diet, voiding spontaneously -Mother/Baby: patient is breast feeding her infant -Pain control: well controlled with PO pain medications -Rubella immune /Rh + -PMH: hypothyroid on Synthroid 88 mcg, managed by endo -PSH: none -Dispo: Cont routine PP care, anticipate discharge home on POD #1. Discharge orders given, restrictions reviewed. Date of admission: Date of admission: 07/03/19 Admission diagnosis: labor-spontaneous Hospital course: spontaneous labor Baby A: Vaginal delivery: spontaneous status: live born Gender: male 1 minute: 8 5 minutes: 9 Plan: routine care, discharge today Instructions: routine instr sheet given, instr and warnings rev'd, specific instr as noted Diet: regular Activity and restrictions: up ad mary ann, may shower, pelvic rest, no intercourse for 6 wks Contraception discussed: will discuss at PP visit Discharge meds: Continue taking these medications: FERROUS SULFATE (FEOSOL) 325 MG TAB 325 MILLIGRAM ORAL DAILY. Qty = 30 LEVOTHYROXINE (LEVOTHROID) 88 MCG TAB 88 MICROGRAM ORAL DAILY. ESOMEPRAZOLE MAG DR (NexIUM) 20 MG CAP.DR 20 MILLIGRAM ORAL DAILY AT 0600. as needed for HEARTBURN PNV/FE FUM/FA ( MULTIVITAMIN) 1 TAB TAB 1 TABLET ORAL DAILY. Discharge condition: stable Discharge to: home Follow up in: 6 weeks Discharge diagnosis: full-term uncomp delivery Morena Greenwood 07/04/19 1044: Discharge Summary Discharge Summary Date of admission: Date of admission: 07/03/19 Attestations Attestation needed: supervising physician Physician Attestation Agree w/findings plan: Agree with the findings and plan as documented by Lilia Freedman Pt is PPD#1, dc home Reviewed findings plan: Reviewed the findings and plan as documented by Lilia Freedman at 1025 RPT #:[id number] END OF REPORT [facility] 2019-07-04 10:21:00 [facility] ([facility]) OB Disch REPORT#:[id number] REPORT STATUS: Signed DATE:07/04/19 TIME: 102 PATIENT: KIRK FALLON UNIT #: [id number] ROOM/BED: 4624-A : 94 AGE: 23 SEX: F ATTEND: Alexia Randall MD ADM AUTHOR: Lilia Freedman * ALL edits or amendments must be made on the electronic/computer document * Lilia Freedman 07/04/19 1021: Subjective Subjective Admission EGA (wks/days): 39 weeks EGA at delivery (wks/days): 39 weeks Status/day: post (PPD #1) Patient reports: Patient reports: Yes: normal lochia, pain management effective, tolerating po well, voiding well, voiding without pain, tolerating ambulation, flatus. No: complaints, excessive bleeding, abdominal pain. Objective General VS: Vital Signs Date Temp Pulse Resp B/P B/P Mean Pulse Ox FiO2 07/03 36.1-36.9 66-106 18 124-154/69-96 94.0-113.0 Last Documented: Result Date Time B/P 131/76 07/03 1945 Temp 36.1 07/03 1945 Pulse 91 07/03 1945 Resp 18 07/03 1945 B/P Mean 97.0 07/03 1913 Patient Weight Weight (lb): Weight (oz): Weight (kg): Physical Exam Abdomen: no abnormal tenderness, no guarding, no rebound tenderness Uterus: involution appropriate, non-tender Fundus: below the umbilicus, non-tender Lochia: normal Results Findings/Data: Laboratory Tests: 07/03 1009 Hematology WBC (6.6 - 12.1 K/mm3) 10.6 RBC (3.45 - 5.01 M/mm3) 4.00 Hgb (10.7 - 13.9 g/dL) 10.8 Hct (32.1 - 42.1 %) 33.6 MCV (84.1 - 94.8 fL) 84 L MCH (27 - 35 pg) 27.0 MCHC (32.2 - 34.1 gm/dL) 32.1 L RDW (12.4 - 16.5 %) 16.0 Plt Count (133 - 385 K/mm3) 273 MPV (9.1 - 12.7 fl) 11.5 Neut % (Auto) (56.5 - 79.4 %) 78.4 Lymph % (Auto) (14.3 - 34.3 %) 14.2 L [place] % (Auto) (5.1 - 10.4 %) 6.2 Eos % (Auto) (0.1 - 3.0 %) 0.4 Baso % (Auto) (0.1 - 1.0 %) 0.4 Neut # (Auto) (K/mm3) 8.3 Lymph # (Auto) (K/mm3) 1.5 [place] # (Auto) (K/mm3) 0.7 Eos # (Auto) (K/mm3) 0.04 Baso # (Auto) (K/mm3) 0.0 Immature Plt Fraction (0.0 - 10.8 %) 0.0 Serology Treponema pallidum Ab (NONREACTIVE) NONREACTIVE Hep Bs Antigen (NONREACTIVE) NONREACTIVE Hepatitis C Antibody (NONREACTIVE) NONREACTIVE Hep C Ab Signal/Cutoff (<0.80) 0.11 HIV 1 2 Antibody (NONREACTIVE) NONREACTIVE Discharge Summary Discharge Summary Free Text A P: 23 y/o at 39w0d s/p TSVD Assessment: PPD # 1, VSS -ID: Afebrile. No signs or symptoms of infection -Lab: Hgb 10.8, serology neg x 3 -CV/Pulm: hemodynamically stable -GI/: tolerating regular diet, voiding spontaneously -Mother/Baby: patient is breast feeding her infant -Pain control: well controlled with PO pain medications -Rubella immune /Rh + -PMH: hypothyroid on Synthroid 88 mcg, managed by endo -PSH: none -Dispo: Cont routine PP care, anticipate discharge home on POD #1. Discharge orders given, restrictions reviewed. Date of admission: Date of admission: 07/03/19 Admission diagnosis: labor-spontaneous Hospital course: spontaneous labor Baby A: Vaginal delivery: spontaneous status: live born Gender: male 1 minute: 8 5 minutes: 9 Plan: routine care, discharge today Instructions: routine instr sheet given, instr and warnings rev'd, specific instr as noted Diet: regular Activity and restrictions: up ad mary ann, may shower, pelvic rest, no intercourse for 6 wks Contraception discussed: will discuss at PP visit Discharge meds: Continue taking these medications: FERROUS SULFATE (FEOSOL) 325 MG TAB 325 MILLIGRAM ORAL DAILY. Qty = 30 LEVOTHYROXINE (LEVOTHROID) 88 MCG TAB 88 MICROGRAM ORAL DAILY. ESOMEPRAZOLE MAG DR (NexIUM) 20 MG CAP.DR 20 MILLIGRAM ORAL DAILY AT 0600. as needed for HEARTBURN PNV/FE FUM/FA ( MULTIVITAMIN) 1 TAB TAB 1 TABLET ORAL DAILY. Discharge condition: stable Discharge to: home Follow up in: 6 weeks Discharge diagnosis: full-term uncomp delivery Morena Greenwood 07/04/19 1044: Discharge Summary Discharge Summary Date of admission: Date of admission: 07/03/19 Attestations Attestation needed: supervising physician Physician Attestation Agree w/findings plan: Agree with the findings and plan as documented by Lilia Freedman Pt is PPD#1, dc home Reviewed findings plan: Reviewed the findings and plan as documented by Lilia Freedman at 1025 at 1045 RPT #:[id number] END OF REPORT [facility] 2019-07-03 16:53:00 [facility] ([facility]) OB Delivery Note REPORT#:[id number] REPORT STATUS: Signed DATE:07/03/19 TIME: 1652 PATIENT: KIRK FALLON UNIT #: [id number] ROOM/BED: [address] : 94 AGE: 23 SEX: F ATTEND: Alexia Randall MD ADM AUTHOR: Morena Greenwood MD * ALL edits or amendments must be made on the electronic/computer document * OB Delivery Nursing Documentation Review Nursing data: The data set between the solid lines has been imported from nursing documentation. Any exceptions have been noted below under Provider comments. _ ROM date: ROM time: Membranes rupture method: Amniotic fluid color: Amniotic fluid amount: EGA (weeks/days): EGA at admit (weeks): EGA at delivery (weeks): Steroids prior to arrival: Antibiotic prophylaxis given: Wheeler evaluation at delivery: Delivery date infant A: Delivery time A: Birthweight (gm) A: Weight (lb) infant A: Weight (oz) A: Gender infant A: 1 minute A: 5 minutes A: 10 minutes infant A: Cord pH obtained A: Vacuum time infant A: Vacuum # pulls A: Vacuum # popoffs infant A: __ Provider comments on imported nursing data: [] Pre-delivery GBS status: GBS status: negative evaluation at delivery: NRP certified personnel Admission EGA (wks/days): 39 weeks EGA at delivery (wks/days): 39 weeks General VS: Last Documented: Result Date Time B/P Mean 98.0 07/03 1359 B/P 129/80 07/03 1359 Pulse 78 07/03 135 Temp 98.3 07/03 1330 Resp 18 07/03 0941 Membranes: AROM ROM date: 07/03/19 Amniotic fluid: clear Labor onset: Date: 07/03/19 Baby A Information Baby A information Delivery date: 07/03/19 status: live born Wt of baby: not yet available Gender: male 1 minute: 8 5 minutes: 9 Presentation: vertex Vaginal Delivery Vaginal delivery Labor: augmented Medications/Devices used: oxytocin Vaginal delivery: spontaneous Amniotic fluid: clear Anesthesia type: epidural anesthesia Placenta: spontaneous Post delivery meds used: oxytocin Count: correct Mother's condition: mother stable 's condition: stable in room Lacerations: Perineal laceration(s): perineal skin abrasion Additional comments: As the head crowned and delivered, the perineum was protected with blue towel. The anterior shoulder delivered with gentle downward traction and posterior shoulder with gentle upward traction. A nuchal cord was noted. The infant was bulb suctioned, the cord clamped and cut, then handed to the waiting mother. Placenta delivered spontaneously and intact. Hemostasis achieved with fundal massage and IV pitocin. A perineal skin abrasion was noted and repaired for cosmesis with 2-0 vicryl on SH. Sponge, lap, and needle counts correct x 2, lap scan negative. Good maternal-infant bonding noted Blood Loss/Details Blood loss at delivery: <1000 ml (300 cc) at 1657 RPT #:[id number] END OF REPORT [facility] 2019-07-03 10:03:00 [facility] ([facility]) OB Admission / H P REPORT#:[id number] REPORT STATUS: Signed DATE:07/03/19 TIME: 1003 PATIENT: KIRK FALLON UNIT #: [id number] ROOM/BED: [facility] : 94 AGE: 23 SEX: F ATTEND: lAexia Randall MD ADM AUTHOR: Morena Greenwood MD * ALL edits or amendments must be made on the electronic/computer document * OB Admission H P Hx Nursing Documentation Review Nursing data: The data set between the solid lines has been imported from nursing documentation. Any exceptions have been noted below under Provider comments. Current data Steroids prior to arrival: ROM date: ROM time: EGA (weeks/days): EGA at admit (weeks): EDC date: Prior history : Para: Term: : Abortions spontaneous: Abortions induced: Living children: Ectopic: Stillbirths: Live births: deaths: Number of previous C/S: Reported maternal labs/data Blood type: Rh type: Rubella: Hepatitis B: HIV exposure test: VDRL: Group B beta strep: Rho(D) immune globulin this preg: Monitor mode - UA: Feeding preference: Provider comments on imported nursing data: [] Chief complaint: uterine contractions HPI: 23 y/o at 39w0d who presents for painful contractions history: : 3 Term: 1 : 0 Abortus: 1 Living children: 1 Complications (prev preg): none Current : EDC: 07/10/19 Admission EGA (wks/days): 39 weeks EGA based on: ultrasound, 1st trimester Past medical history: thyroid Past surgical history: denies PSH Social history: no alcohol use, no tobacco use, no drug use Medications: Home Medications: LEVOTHYROXINE (LEVOTHROID) 88 MCG PO DAILY ESOMEPRAZOLE MAG DR (NexIUM) 20 MG PO DAILY 0600 PRN HEARTBURN PNV/FE FUM/FA ( MULTIVITAMIN) 1 TAB PO DAILY FERROUS SULFATE (FEOSOL) 325 MG PO DAILY Allergies Coded Allergies: No Known Allergies (06/25/19) Review of Systems All systems rev neg: except as marked Objective General VS: Last Documented: Result Date Time B/P Mean 114.0 07/03 0941 B/P 146/92 07/03 0941 Pulse 82 07/03 0941 Vital Signs Date Temp Pulse Resp B/P B/P Mean Pulse Ox FiO2 07/03 82 146/92 114.0 Patient Weight Weight (lb): Weight (oz): Weight (kg): Physical Exam Abdomen: gravid, soft Uterine activity: Monitor: toco Frequency (description): regular Frequency (minutes): 2 Intensity: strong Pelvic exam: Pelvis clinically adequate: yes Cervical/ exam: Dilatation (cm): 6 Effacement (%): 70 Est wt (gms): 4270 Suspected macrosomia: Yes station: - 1 Membranes: Membranes: Intact Baby A: Baby A baseline: 125 bpm Baby A variability: moderate 6-25 bpm Baby A accelerations: 15 X 15 Baby A decelerations: none Baby A FHR category: category 1 Result ROM test: negative Diagnosis, Assessment Plan Diagnosis, Assessment Plan Free Text A P: 23 y/o at 39w0d who presents to [facility] in labor 1. Active labor- painful cxs q 2 min, SVE 6/70/-1 2. Suspected macrosomia- 06/26 EFW 4270 g, AC>99%. 1 hr GCT wnl. Prior TSVD 9lb5oz w/ no dysctocia or complications. Pt counseled on risks and desires a trial of labor 3. PMH- hypothyroid on Synthroid 88 mcg, managed by endo 4. PSH- none 5. Rh+, Rub Imm. GBS neg 6. status reassuirng 7. Baby boy, desires circ. Peds Dr. Gonzalez 8. Pain- desires epidural 9. Dispo: Admit to L D for management of labor at 1011 RPT #:[id number] END OF REPORT [facility] 2019-07-03 10:03:00 [facility] ([facility]) OB Admission / H P REPORT#:[id number] REPORT STATUS: Signed DATE:07/03/19 TIME: 1003 PATIENT: KIRK FALLON UNIT #: [id number] ROOM/BED: [address] : 94 AGE: 23 SEX: F ATTEND: Alexia Randall MD ADM AUTHOR: Morena Greenwood MD * ALL edits or amendments must be made on the electronic/computer document * See Addendum OB Admission H P Hx Nursing Documentation Review Nursing data: The data set between the solid lines has been imported from nursing documentation. Any exceptions have been noted below under Provider comments. Current data Steroids prior to arrival: ROM date: ROM time: EGA (weeks/days): EGA at admit (weeks): EDC date: Prior history : Para: Term: : Abortions spontaneous: Abortions induced: Living children: Ectopic: Stillbirths: Live births: deaths: Number of previous C/S: Reported maternal labs/data Blood type: Rh type: Rubella: Hepatitis B: HIV exposure test: VDRL: Group B beta strep: Rho(D) immune globulin this preg: Monitor mode - UA: Feeding preference: Provider comments on imported nursing data: [] Chief complaint: uterine contractions HPI: 23 y/o at 39w0d who presents for painful contractions history: : 3 Term: 1 : 0 Abortus: 1 Living children: 1 Complications (prev preg): none Current : EDC: 07/10/19 Admission EGA (wks/days): 39 weeks EGA based on: ultrasound, 1st trimester Past medical history: thyroid Past surgical history: denies PSH Social history: no alcohol use, no tobacco use, no drug use Medications: Home Medications: LEVOTHYROXINE (LEVOTHROID) 88 MCG PO DAILY ESOMEPRAZOLE MAG DR (NexIUM) 20 MG PO DAILY 0600 PRN HEARTBURN PNV/FE FUM/FA ( MULTIVITAMIN) 1 TAB PO DAILY FERROUS SULFATE (FEOSOL) 325 MG PO DAILY Allergies Coded Allergies: No Known Allergies (06/25/19) Review of Systems All systems rev neg: except as marked Objective General VS: Last Documented: Result Date Time B/P Mean 114.0 07/03 09 B/P 146/92 07/03 09 Pulse 82 07/03 09 Vital Signs Date Temp Pulse Resp B/P B/P Mean Pulse Ox FiO2 07/03 82 146/92 114.0 Patient Weight Weight (lb): Weight (oz): Weight (kg): Physical Exam Abdomen: gravid, soft Uterine activity: Monitor: toco Frequency (description): regular Frequency (minutes): 2 Intensity: strong Pelvic exam: Pelvis clinically adequate: yes Cervical/ exam: Dilatation (cm): 6 Effacement (%): 70 Est wt (gms): 4270 Suspected macrosomia: Yes station: - 1 Membranes: Membranes: Intact Baby A: Baby A baseline: 125 bpm Baby A variability: moderate 6-25 bpm Baby A accelerations: 15 X 15 Baby A decelerations: none Baby A FHR category: category 1 Result ROM test: negative Diagnosis, Assessment Plan Diagnosis, Assessment Plan Free Text A P: 23 y/o at 39w0d who presents to [facility] in labor 1. Active labor- painful cxs q 2 min, SVE 6/70/-1 2. Suspected macrosomia- 06/26 EFW 4270 g, AC>99%. 1 hr GCT wnl. Prior TSVD 9lb5oz w/ no dysctocia or complications. Pt counseled on risks and desires a trial of labor 3. PMH- hypothyroid on Synthroid 88 mcg, managed by endo 4. PSH- none 5. Rh+, Rub Imm. GBS neg 6. status reassuirng 7. Baby boy, desires circ. Peds Dr. Gonzalez 8. Pain- desires epidural 9. Dispo: Admit to L D for management of labor at 1011 Addendum 1: 07/03/19 1503 by Morena Greenwood MD SVE 8/c/0, PIt 6, Cat I strip. Epidural in place at 1504 RPT #:[id number] END OF REPORT [facility]
[2025-06-01] MEDS ORDERED: NA CHLORIDE 0.9% 1,000 ML ONE (19:53)
[2025-06-01 20:11] LABS: Absolute Lymphocytes (CBC) 1.7 K/uL (0.7-4.9); Hematocrit 40.2 % (36.0-45.0); Hemoglobin 13.9 g/dL (12.0-15.0); MCH 29.7 pg (27.0-35.0); MCHC 34.6 g/dL (32.0-36.0); MCV 85.6 fL (80-100); MPV 8.3 fL (7.6-11.3); Nucleated RBC Absolute Count 0.0 (0-0); Nucleated Red Blood Cells % 0.1 % (0-0); RBC Red Blood Cell Count 4.70 M/uL (3.86-4.86); White Blood Count 6.40 thou/uL (4.3-10.9)
[2025-06-01 20:13] LABS: Sqamous Epithelial <5 /HPF (None Seen); Urine Culture Reflex Order NOT NEEDED; Urine Microscopic Reflex YN ORDER UMIC
[2025-06-01 20:31] LABS: ALT/SGPT 59.0 U/L (13-56); AST/SGOT 30.0 U/L (15-37); Albumin 4.1 g/dL (3.4-5.0); Albumin/Globulin Ratio 1.1 (1.1-1.8); Alkaline Phosphatase 117.0 U/L (45-117); Anion Gap 10.7 mEq/L (5.0-15.0); BUN Blood Urea Nitrogen 12.0 mg/dL (7-18); Globulin 3.8 g/dL (2.3-3.5); Glucose Level 97.0 mg/dL (74-106); Lipase 37.0 U/L (13-75); Potassium 3.7 mEq/L (3.5-5.1)
--- NOTE | 2025-06-01 21:04 | RAD REPORT ---
EXAMINATION: Abdomen Pelvis Wo Contrast CLINICAL INDICATION: Female, 29 years old.stone protocol / left flank pain TECHNIQUE: CT abdomen and pelvis was performed, without IV contrast, as per department protocol. Axia l, sagittal and coronal reconstructions were obtained. One or more of the following dose reduction techniques were used: Automated exposure control, adjustment of the mA and/or kV according to the pat ient size, and/or iterative reconstruction. Unless otherwise specified, incidental findings do not require dedicated imaging follow-up. [id number]. IV CONTRAST: Not administered. COMPARISON: No prior exams FINDINGS: The lack of intravenous contrast limits the sensitivity of this exam for evaluation of solid visceral organs, vascular structures, and retroperitoneum. LOWER CHEST: No acute process identified.No significant pericardial effusion. Bilateral breast prosth eses with possible intracapsular ruptures. UPPER GI: No significant abnormality. LIVER: No significant focal abnormality. GALLBLADDER/BILE DUCTS: No biliary ductal dilatation.? PANCREAS: No mass, ductal dilation, or brant-pancreatic fluid. SPLEEN: Unremarkable. ADRENALS: No adrenal masses. KIDNEYS AND URETERS: No hydronephrosis.Limited evaluation for renal lesions in the absence of IV cont rast.No renal calculi.No ureteral calculi. ABDOMINAL AORTA AND OTHER VESSELS: Normal caliber aorta and IVC. PERITONEUM: Inflammatory changes in the left lower quadrant along the descending colon which is assoc iated with encapsulated fat consistent with epiploic appendicitis. LYMPH NODES: No pathologic lymphadenopathy. ABDOMINAL WALL: Small fat containing umbilical hernia. SMALL BOWEL/COLON: Small bowel has normal course and caliber. No colonic wall thickening or pericolon ic inflammatory changes.Normal appendix. Mild diverticulosis without diverticulitis. URINARY BLADDER: Underdistended but grossly unremarkable. REPRODUCTIVE ORGANS: No pathologic process. IUD. MUSCULOSKELETAL: No acute or suspicious osseous abnormality. ADDITIONAL FINDINGS: None. IMPRESSION: Epiploic appendagitis at the descending colon.
--- NOTE | 2025-06-01 21:14 | EDPHYS ---
Physician Documentation [facility] Name: Tracy Fallon Age: 29 yrs Sex: Female : 1995 Arrival Date: 06/01/2025 Time: 18:43 Bed 14 Private MD: ED Physician Gerardo Palacios HPI: 06/01 18:59 This 29 yrs old Female presents to ER via Ambulatory with complaints of Flank sp3 Pain - LT, Back Pain - LT, Abdominal Pain - LT. 18:59 29-year-old female with no past medical history presents with left flank pain over the sp3 last 2 weeks worsening over the last 48 hours. She was seen in urgent care in [place] yesterday where she was told to go to the ER for possible kidney stone due to blood in her urine but she decided to wait so she got back here to [place]. She states that the UA was negative for UTI and yesterday. She denies any other symptoms and pain is somewhat relieved with urination. ROS negative for headache, chest pain, shortness of breath, fever, , right-sided pain, numbness or syncope, near-syncope, rash, bleeding or any other signs or symptoms on ROS at this time.. Historical: - Allergies: 18:59 No Known Allergies; ll1 - Home Meds: 18:59 None [Active]; ll1 - PMHx: 18:59 None; ll1 - PSHx: 18:59 LEEP; breast/tummy tuck; ll1 - Immunization history:: Adult Immunizations up to date. - Infectious Disease History:: Denies. - Social history:: Smoking status: Patient denies any tobacco usage or history of. ROS: 19:00 Constitutional: Negative for fever, chills, and weight loss, Eyes: Negative for injury, sp3 pain, redness, and discharge, ENT: Negative for injury, pain, and discharge, Neck: Negative for injury, pain, and swelling, Cardiovascular: Negative for chest pain, palpitations, and edema, Respiratory: Negative for shortness of breath, cough, wheezing, and pleuritic chest pain, Abdomen/GI: Negative for abdominal pain, nausea, vomiting, diarrhea, and constipation, MS/Extremity: Negative for injury and deformity, Skin: Negative for injury, rash, and discoloration, Neuro: Negative for headache, weakness, numbness, tingling, and seizure, 19:00 All other systems are negative, Exam: 19:00 Constitutional: This is a well developed, well nourished patient who is awake, alert, sp3 and in no acute distress. Head/Face: Normocephalic, atraumatic. Eyes: Pupils equal round and reactive to light, extra-ocular motions intact. Lids and lashes normal. Conjunctiva and sclera are non-icteric and not injected. Cornea within normal limits. Periorbital areas with no swelling, redness, or edema. Neck: Trachea midline, no thyromegaly or masses palpated, and no cervical lymphadenopathy. Supple, full range of motion without nuchal rigidity, or vertebral point tenderness. No Meningismus. Chest/axilla: Normal chest wall appearance and motion. Nontender with no deformity. No lesions are appreciated. Cardiovascular: Regular rate and rhythm with a normal S1 and S2. No gallops, murmurs, or rubs. Normal PMI, no JVD. No pulse deficits. Respiratory: Lungs have equal breath sounds bilaterally, clear to auscultation and percussion. No rales, rhonchi or wheezes noted. No increased work of breathing, no retractions or nasal flaring. Abdomen/GI: Soft, non-tender, with normal bowel sounds. No distension or tympany. No guarding or rebound. No evidence of tenderness throughout. Back: No spinal tenderness. No costovertebral tenderness. Full range of motion. Skin: Warm, dry with normal turgor. Normal color with no rashes, no lesions, and no evidence of cellulitis. MS/ Extremity: Pulses equal, no cyanosis. Neurovascular intact. Full, normal range of motion. Neuro: Awake and alert, GCS 15, oriented to person, place, time, and situation. Cranial nerves II-XII grossly intact. Motor strength 5/5 in all extremities. Sensory grossly intact. Cerebellar exam normal. Normal gait. Psych: Awake, alert, with orientation to person, place and time. Behavior, mood, and affect are within normal limits. Vital Signs: 18:56 BP 132 / 97; Pulse 91; Resp 17; Temp 98.1; Pulse Ox 100% on R/A; Weight 86.18 kg; ll1 Height 5 ft. 0 in. ; Pain 7/10; 21:37 BP 118 / 88; Pulse 78; Resp 17; Pulse Ox 100% ; vc1 18:56 Body Mass Index 37.11 (86.18 kg, 152.4 cm) ll1 18:56 Pain Scale: Adult ll1 [place] Coma Score: 20:13 Eye Response: spontaneous(4). Motor Response: obeys commands(6). Verbal Response: kd4 oriented(5). Total: 15. MDM: 18:55 Medical Screening Exam initiated sp3 19:01 Data reviewed: vital signs, nurses notes, lab test result(s), radiologic studies. ED sp3 course: 29-year-old female with left flank pain. Differential diagnosis includes ureterolithiasis/kidney stone spectrum, UTI/pyelonephritis spectrum, other intestinal pathology, [employer] pathology if test is positive, musculoskeletal, foodborne illness, among others. Workup will include CT scan of the abdomen pelvis stone protocol, UA and general labs. Patient declined pain medication at this time. Disposition pending workup and patient course.. 21:12 ED course: CT scan demonstrates epiploic appendagitis. Remainder of workup negative. sp3 Will safely discharge patient home.. 06/01 18:59 Order name: CBC with Diff; Complete Time: 20:31 sp3 06/01 18:59 Order name: CMP; Complete Time: 20:31 sp3 06/01 18:59 Order name: Lipase; Complete Time: 20:31 sp3 06/01 18:59 Order name: UA Rfx Gilbert Cult if indicated; Complete Time: 20:31 sp3 06/01 18:59 Order name: Test, Urine; Complete Time: 20:31 sp3 06/01 18:59 Order name: CT Abd/Pelvis - Without Contrast; Complete Time: 21:12 sp3 06/01 18:59 Order name: IV Saline Lock; Complete Time: 20:33 sp3 06/01 18:59 Order name: Labs collected and sent; Complete Time: 20:33 sp3 Administered Medications: 20:13 Drug: NS 0.9% IV 1000 ml IV at 1 bolus Per protocol; to be given as a bolus over 60 kd4 minutes Route: IV; Rate: 1 bolus; Site: right antecubital; 21:38 Follow up: IV Status: Completed infusion; IV Intake: 1000ml vc1 Disposition Summary: 06/01/25 21:13 Discharge Ordered Notes: Location: Home sp3 Condition: Stable sp3 Diagnosis - Epiploic appendagitis, abdominal pain sp3 Followup: sp3 - With: Private Physician - When: Upon discharge from the Emergency Department - Reason: Continuance of care Discharge Instructions: - Discharge Summary Sheet sp3 - Epiploic Appendagitis sp3 Forms: - Medication Reconciliation Form sp3 - Antibiotic Education sp3 - Prescription Opioid Use sp3 - Patient Portal Instructions sp3 - Leadership Thank You Letter sp3 Signatures: Dispatcher [employer] EDLayo Ann RN RN ll1 Gerardo Palacios MD MD sp3 Angel Reis RN RN kd4 Veronique Mercado RN vc1
--- NOTE | 2025-06-01 21:14 | ER ---
Nurse's Notes [facility] Name: Tracy Fallon Age: 29 yrs Sex: Female : 1995 Arrival Date: 06/01/2025 Time: 18:43 Bed 14 Private MD: Diagnosis: Epiploic appendagitis, abdominal pain Presentation: 06/01 18:56 Chief complaint: Patient states: L flank pain for 1-2 weeks, got worse yesterday. + ll1 nausea. Coronavirus screen: Client denies travel out of the [place] in the last 14 days. At this time, the client does not indicate any symptoms associated with coronavirus-19. Ebola Screen: Patient denies travel to an Ebola-affected area in the 21 days before illness onset. Initial Sepsis Screen: Does the patient meet any 2 criteria? No. Patient's initial sepsis screen is negative. Does the patient have a suspected source of infection? No. Patient's initial sepsis screen is negative. Risk Assessment: Do you want to hurt yourself or someone else? Patient reports no desire to harm self or others. Onset of symptoms was May 18, 2025. 18:56 Method Of Arrival: Ambulatory ll1 18:56 Acuity: MANASA 3 ll1 Triage Assessment: 18:59 General: Appears uncomfortable, Behavior is calm, cooperative, appropriate for age, ll1 Reports fatigue for. Pain: Complains of pain in L flank Quality of pain is described as aching. GI: Reports nausea. : Reports pain in left flank(s). Historical: - Allergies: 18:59 No Known Allergies; ll1 - Home Meds: 18:59 None [Active]; ll1 - PMHx: 18:59 None; ll1 - PSHx: 18:59 LEEP; breast/tummy tuck; ll1 - Immunization history:: Adult Immunizations up to date. - Infectious Disease History:: Denies. - Social history:: Smoking status: Patient denies any tobacco usage or history of. Screenin:13 [facility] ED Fall Risk Assessment (Adult) History of falling in the last 3 months, kd4 including since admission No falls in past 3 months (0 pts) Confusion or Disorientation No (0 pts) Intoxicated or Sedated No (0 pts) Impaired Gait No (0 pts) Mobility Assist Device Used No (0 pt) Altered Elimination No (0 pt) Score/Fall Risk Level 0 - 2 = Low Risk. Abuse screen: Denies threats or abuse. Nutritional screening: No deficits noted. Tuberculosis screening: No symptoms or risk factors identified. Assessment: 20:13 Pain: Complains of pain in left flank Pain currently is 6 out of 10 on a pain scale. kd4 Neuro: Level of Consciousness is awake, alert, obeys commands, Oriented to person, place, time, situation, Appropriate for age. Respiratory: Denies shortness of breath labored breathing, pain with respiration. GI: Reports nausea. : Denies burning with urination, cramping discharge. Vital Signs: 18:56 BP 132 / 97; Pulse 91; Resp 17; Temp 98.1; Pulse Ox 100% on R/A; Weight 86.18 kg; ll1 Height 5 ft. 0 in. ; Pain 7/10; 21:37 BP 118 / 88; Pulse 78; Resp 17; Pulse Ox 100% ; vc1 18:56 Body Mass Index 37.11 (86.18 kg, 152.4 cm) ll1 18:56 Pain Scale: Adult ll1 [place] Coma Score: 20:13 Eye Response: spontaneous(4). Motor Response: obeys commands(6). Verbal Response: kd4 oriented(5). Total: 15. ED Course: 18:47 Patient arrived in ED. cj3 18:52 Gerardo Palacios MD is Attending Physician. sp3 18:55 Arm band placed on. ll1 18:59 Triage completed. ll1 19:51 Angel Reis, JENN is Primary Nurse. kd4 20:13 Patient has correct armband on for positive identification. Bed in low position. Call kd4 light in reach. Client placed on continuous cardiac and pulse oximetry monitoring. NIBP monitoring applied. Pulse ox on. NIBP on. 20:13 Initial lab(s) drawn, by me, sent to lab. Urine collected: clean catch specimen, clear. kd4 Inserted saline lock: 20 gauge in right antecubital area, using aseptic technique. 20:49 CT Abd/Pelvis - Without Contrast In Process Unspecified. EDMS 21:37 Provided Education on: f/u with PCP if symptoms persist. vc1 21:37 No provider procedures requiring assistance completed. IV discontinued, intact, vc1 bleeding controlled, No redness/swelling at site. Pressure dressing applied. Administered Medications: 20:13 Drug: NS 0.9% IV 1000 ml IV at 1 bolus Per protocol; to be given as a bolus over 60 kd4 minutes Route: IV; Rate: 1 bolus; Site: right antecubital; 21:38 Follow up: IV Status: Completed infusion; IV Intake: 1000ml vc1 Medication: 20:13 VIS not applicable for this client. kd4 Intake: 21:38 IV: 1000ml; Total: 1000ml. vc1 Output: 20:13 Urine: 1ml (Voided); Total: 1ml. kd4 Outcome: 21:13 Discharge ordered by . sp3 21:37 Discharged to home ambulatory, vc1 21:37 Condition: stable 21:37 Discharge instructions given to patient, Instructed on discharge instructions, follow up and referral plans. Demonstrated understanding of instructions, follow-up care, 21:38 Patient left the ED. vc1 Signatures: Dispatcher [employer] EDMS Layo Chandra RN RN ll1 Gerardo Palacios MD MD sp3 Veronique Mercado RN RN vc1 Angel Reis RN RN kd4 Ragini Harris 3
[2025-06-01 21:42] VITALS: TEMP 98.1; O2SAT 100
[2025-06-01 21:44] VITALS: BP 118/88
== END 2025-06-01 21:38 | disposition home or self-care (01) ==
LOC: ER 18:43
DX: K63.89 Other specified diseases of intestine (principal)
CPT/HCPCS: 85025; 81001; 36415; 81025; 83690; 80053; 74176; 96360; 99284; J7030